=== PATIENT | male | born 1975 | race Caucasian/White ===

== ENCOUNTER 2024-07-04 14:11 | Emergency (ER) | payer OTHER, SELFPAY ==
[2024-07-04 14:52] VITALS: BP 162/94; PULSE 78; RESP 16; TEMP 37.1; O2SAT 97
--- NOTE | 2024-07-04 17:08 | ED_ITS ---
HPI - Allergic Reaction General: Chief complaint: Allergic Reaction Stated complaint: rash & allergies Time Seen by Provider: 07/04/24 16:59 Source: patient Mode of arrival: ambulatory Limitations: no limitations History of Present Illness: HPI narrative: 49-year-old male states he has been havi ng a rash to his face for the last 3 to 4 weeks states it has been slightly painful it also itches he denies any fevers denies any severe shortness of breath. Denies any spreading of the rash is taken [id number] meds with no improvement. Associated symptoms: Deny abdominal pain, nausea or vomiting Related Data Previous Rx's ?Medication ?Instructions ?Recorded sulfamethoxazole 800 1 tab PO BID 10 days #20 tab s 07/04/24 mg-trimethoprim 160 mg tablet (Bactrim DS) Allergies Allergy/AdvReac Type Severity Reaction Status Date / Time No Known Allergies Allergy Verified 07/04/24 14:56 Review of Systems Const: Denies: fever(s), chills, body aches or change in appetite ENMT: Denies: throat pain or dental pain Card: Denies: chest pain Resp: Denies: dyspnea GI: Denies: abdominal pain, nausea, vomiting or diarrhea Musc: Denies: neck pain or back pain Skin/Breast: Reports: rash Neuro: Denies: headache(s) Physical Exam Const: COMMON NORMALS: no acute distress, patient oriented x3 and healthy appearing HENMT: COMMON NORMALS: normocephalic and atraumatic HEAD & SCALP: normocephalic and atraumatic Eye: COMMON NORMALS: conjunctivae normal CONJUNCTIVA: Yes conjunctivae normal Neck/C-Spine: COMMON NORMALS: full ROM and supple Chest: COMMONS NORMALS: normal inspection of the chest Resp: COMMON NORMALS: normal respiratory effort Cardio: COMMON NORMALS: regular rate RATE: regular rate Extremity: COMMON NORMALS: normal to inspection and full ROM Neuro: COMMON NORMALS: patient oriented x3, moves all extremities and no focal motor deficits Psych: COMMON NORMALS: mental status grossly normal, Normal thought process present and cooperative THOUGHT PROCESS: Normal thought process present Skin: NARRATIVE SKIN EXAM: Folliculitis noted to face Course Vital Signs: Vital signs: Vital Signs Temperature 98.8 F 07/04/24 14:52 Pulse Rate 78 07/04/24 14:52 Respiratory Rate 16 07/04/24 14:52 Blood Pressure 162/94 07/04/24 14:52 Pulse Oximetry 97 07/04/24 14:52 Oxygen Delivery Me thod Room Air 07/04/24 14:52 MDM - Allergic Reaction Medical Decision Making Patient presents with rash to her face and likely a folliculitis we will start him on Bactrim he is well-appearing here no airway involvement he is stable for discharge follow-up PCP return if worsening. No radiology studies performed this visit Discharge Plan Discharge Patient Disposition: Home Clinical Impression: Folliculitis Condition: Stable Prescriptions: New sulfamethoxazole-trimethoprim [Bactrim DS] 800-160 mg tablet 1 tab PO BID 10 Days Qty: 20 0RF Discharge Orders: Discharge ED (Routine); Ordered 07/04/24 Ordered By: Jeanie Littlejohn Discharge Diet: Advance as tolerated Discharge Activity: Resume usual activity Patient Instructions: Folliculitis (ED) Print Language: Turkish Coding Level of Care Code ED Analyst [employer] for Josy Mora
[2024-07-04] MEDS: sulfamethoxazole-trimeth DS 160-800 mg Tablet 1 TAB PO (17:35)
[2024-07-04] MEDS: dexamethasone 10 mg/mL INJ IM (17:35)
[2024-07-04 17:40] VITALS: BP 156/100; PULSE 67; RESP 14; O2SAT 98
== END 2024-07-04 17:39 | disposition home or self-care (01) ==
PROVIDERS: Emergency Provider Emergency Medicine
DX: L73.9 Follicular disorder, unspecified (principal)
CPT/HCPCS: 96372; 99284; J1100; J9999